=== PATIENT | female | born 1985 | race Caucasian/White ===

== ENCOUNTER 2019-10-01 13:54 | Emergency (ER) | payer MEDICAID, SELFPAY ==
[2019-10-01 13:56] VITALS: BP 113/68; PULSE 98; RESP 16; TEMP 36.4; O2SAT 97; BMI 20.8
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
--- NOTE | 2019-10-01 14:06 | ED.DEP ---
ED Disposition - Plan for ED Patient: Instructions: Dental Abscess, ED Tooth Pain Prescriptions: Clindamycin HCl [Cleocin] 300 mg PO Q6H #40 cap Prescription Printed Naproxen [Naprosyn] 500 mg PO BID PRN #20 tab Prescription Printed Referrals: Care Physician,No Primary [Primary Care Provider] - Additional Instructions: see a dentist
[2019-10-01] MEDS: Clindamycin HCl 150 MG Capsule 300 MG PO (14:17)
[2019-10-01 14:19] VITALS: RESP 14
== END 2019-10-01 14:23 | disposition home or self-care (01) ==
LOC: ED 14:15
PROVIDERS: Emergency Provider Emergency Medicine
DX: K04.7 Periapical abscess without sinus (principal); Z72.0 Tobacco use
CPT/HCPCS: 99283